=== PATIENT | female | born 1945 | race Caucasian/White ===

== ENCOUNTER 2021-02-06 15:31 | Emergency (ER) | payer MEDICARE ==
[~2021-02-06 15:31] MED LIST: PERCOCET 5-3251 EACH PO
[2021-02-06 16:41] LABS: BASOPHIL 0.6 % (0-2); EOSINOPHIL 0.6 % (0-7); HCT 44.9 % (37.0-47.0); HGB 14.6 g/dl (12.5-16.0); LYMPHOCYTE 17.5 % (15-48); MCH 31.9 pg (25.0-31.0); MCHC 32.5 g/dL (32.0-36.0); MCV 98.2 fL (78.0-100.0); MONOCYTE 4.6 % (0-12); MPV 9.6 fL (6.0-9.5); NEUTROPHIL 76.3 % (41-80); NRBC 0; PLT 285 K/uL (150-400); RBC 4.57 M/uL (4.20-5.40); RDW 12.2 % (11.5-14.0); WBC 9.6 K/uL (4.0-10.5)
[2021-02-06 16:51] LABS: ALBUMIN 3.9 g/dL (3.4-5.0); BILIRUBIN - TOTAL 0.5 mg/dL (0.2-1.0); BUN/CREAT RATIO (CALC) 21.1 RATIO; CREATININE 0.71 mg/dL (0.51-0.95); GLOBULIN (CALCULATION) 4.8 g/dL; POTASSIUM 3.9 mmol/L (3.5-5.1); TOTAL PROTEIN 8.7 g/dL (6.4-8.2)
[2021-02-06 17:00] LABS: BILIRUBIN NEGATIVE (NEGATIVE); BLOOD 3+ Ery/uL (NEGATIVE); CLARITY CLEAR (CLEAR); COLOR YELLOW (YELLOW); GLUCOSE (U) 3+ mg/dL (NORMAL); LEUKOCYTES TRACE Leu/uL (NEGATIVE); NITRITE NEGATIVE (NEGATIVE); PROTEIN TRACE (LOW) mg/dL (NEGATIVE); SPECIFIC GRAVITY >=1.030 (1.001-1.030)
[2021-02-06 17:08] LABS: URINARY RBC 20-50; URINARY WBC RARE
[2021-02-06] MEDS ORDERED: ONDANSETRON ODT4 MG PO (18:45)
[2021-02-06] MEDS ORDERED: HYDROCODON-ACE1 EAC2 PO (18:45)
[2021-02-06] MEDS ORDERED: FLOMAX 0.4 MG0.4 MG PO (18:45)
== END 2021-02-06 19:06 | disposition home or self-care (01) ==
LOC: FER 15:31
PROVIDERS: Emergency Medicine
DX: N13.2 Hydronephrosis with renal and ureteral calculous obstruction (principal); E11.9 Type 2 diabetes mellitus without complications; I10 Essential (primary) hypertension; Z86.73 Personal history of transient ischemic attack (TIA), and cerebral infarction without residual deficits; Z90.49 Acquired absence of other specified parts of digestive tract; Z88.0 Allergy status to penicillin; Z91.041 Radiographic dye allergy status; Z79.4 Long term (current) use of insulin; Z79.899 Other long term (current) drug therapy
CPT/HCPCS: 36415; 80053; 81001; 82150; 83690; 85025; J1170; J1885; J2270; J2405; J2550; J7030